=== PATIENT | female | born 1970 | race Caucasian/White ===

== ENCOUNTER → 2016-11-09 | Outpatient (CLI) | payer OTHER ==
[~2016-11-09] MED LIST: ALBUTEROL20 ml INH; AMBIEN10 MG PO; EFFEXOR100 MG PO
[2016-11-09 11:12] LABS: CHOLESTEROL 217 mg/dL (0-200); GLUCOSE FASTING 99 mg/dL (70-110); HDL CHOLESTEROL 55 mg/dL (35-95); LDL CHOLESTEROL 120 mg/dL (-130); LDL/HDL RATIO 2 RATIO (0-4); TRIGLYCERIDES 212 mg/dL (10-160)
== END | disposition home or self-care (01) ==
LOC: CLAB 10:05
PROVIDERS: Surgery
DX: E66.01 Morbid (severe) obesity due to excess calories (principal)
CPT/HCPCS: 36415; 80061; 82947